=== PATIENT | male | born 1995 | race Hispanic/Latino ===

== ENCOUNTER 2020-06-30 18:28 | Emergency (ER) | payer SELFPAY ==
[2020-06-30] MEDS ORDERED: KETOROLAC 30 MG/ML INJ ONE (20:52)
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
[2020-07-05 08:39] VITALS: BP 140/94; TEMP 98.9; O2SAT 100
== END 2020-06-30 21:22 | disposition home or self-care (01) ==
LOC: ER 18:28
DX: S40.012A Contusion of left shoulder, initial encounter (principal); S60.222A Contusion of left hand, initial encounter; S60.221A Contusion of right hand, initial encounter; V43.52XA Car driver injured in collision with other type car in traffic accident, initial encounter
CPT/HCPCS: 96372; 99284; G0390